=== PATIENT | female | born 1985 | race Caucasian/White ===

== ENCOUNTER → 2021-09-09 13:47 | Outpatient (CLI) | payer BC, SELFPAY ==
--- NOTE | 2021-09-09 14:23 | US_ITS ---
PROCEDURE: US THYROID CLINICAL INDICATION: THYROMEGALY Fatigue, neck pain, palpitations COMPARISON: No exams were available for comparison FINDINGS: Right lobe: Echogenicity is diffusely increased however vascularity is normal. Right lobe measures 1.6 x 4.6 x 2.4 centimeters. There are 2 hypoechoic nodules, the largest of which measures 3 millimeters. Left lobe: Diffusely increased echogenicity with normal vascularity. Measures 1.6 x 4.8 x 2.1 cm. There is a single hypoechoic nodule measuring 8 millimeters. Isthmus: Unremarkable Additional findings: None IMPRESSION: 1. TI-RADS Scoring and Classification: TR1: Benign. 2. Recommendations: No FNA required. Dictated by: Noemi Godwin MD 09/09/2021 14:49 Noemi Godwin MD in [place] 09/09/2021 14:49
== END ==
PROVIDERS: PCP Nurse Practitioner Family; Visit Provider Nurse Practitioner Family
DX: E01.0 Iodine-deficiency related diffuse (endemic) goiter (principal)
CPT/HCPCS: 76536

== ENCOUNTER → 2022-03-24 12:22 | Outpatient (CLI) | payer BC, SELFPAY ==
[2022-03-24 12:59] LABS: Basophils # 0.4 K/mm3 (0-0.2); Basophils % 3.1 % (0.1-2.0); Eosinophils % 0.3 % (0.1-12.0); Hematocrit 39.1 % (37.0-47.0); Hemoglobin 12.5 g/dL (12.2-16.2); Lymphocytes # 9.6 K/mm3 (0.7-4.5); Lymphocytes % 70.6 % (10-50); Mean Corpuscular Hemoglobin 27.5 pg (27.0-31.2); Mean Corpuscular Volume 85.9 fl (81-99); Mean Platelet Volume 9.4 fl (7.4-10.4); Monocytes # 0.4 K/mm3 (0.1-1.0); Neutrophils # 3.1 K/mm3 (1.8-7.8); Neutrophils % 22.9 % (37.0-80.0); Platelet Count 223 K/mm3 (142-424); Red Blood Count 4.55 M/mm3 (4.20-5.40); Red Cell Distribution Width 14.9 % (11.5-17.5); White Blood Count 13.5 K/mm3 (4.8-10.8)
[2022-03-24 13:05] LABS: MANUAL DIFFERENTIAL MANUAL DIFFERENTIAL (MANUAL DIFF)
[2022-03-24 13:26] LABS: Chloride 100 mmol/L (98-107); Potassium 3.6 mmoL/L (3.5-5.1); Sodium 136 mmol/L (136-145)
[2022-03-24 13:28] LABS: Blood Urea Nitrogen 8 mg/dl (7-17)
[2022-03-24 13:29] LABS: Alanine Aminotransferase 289 U/L (12-78); Albumin Level 3.7 g/dl (3.5-5.0); Albumin/Globulin Ratio 1.1 (1.1-1.8); Alkaline Phosphatase 632 U/L (38-126); Anion Gap 9.6 mEq/L (5-15); Aspartate Amino Transferase 318 U/L (14-36); Bilirubin,Total 0.8 mg/dl (0.2-1.3); Calcium 9.4 mg/dl (8.4-10.2); Carbon Dioxide 30 mmol/L (22.0-30.0); Estimated Glomerular Filt Rate 140 ml/min (>60); GFR (African American) 170 ML/MIN (>60); Globulin 3.3 g/dL (1.3-3.2); Glucose 142 mg/dl (74-100)
[2022-03-24 15:52] LABS: Anisocytosis 1+; Lymphocytes % 76 % (10-50); Monocytes % 6 % (2-9); Neutrophils % 17 % (42-76); Platelet Estimate Normal; Total Cells Counted 100
== END ==
PROVIDERS: Visit Provider Nurse Practitioner Family
DX: H57.89 Other specified disorders of eye and adnexa (principal); R50.9 Fever, unspecified
CPT/HCPCS: 36415; 80053; 85007; 85025

== ENCOUNTER → 2022-03-28 09:19 | Outpatient (CLI) | payer BC, OTHER, SELFPAY ==
--- NOTE | 2022-03-28 09:27 | US_ITS ---
FINAL REPORT CLINICAL HISTORY: ELEVATED LIVER ENZYMES FINDINGS: Sonographic images of the right upper quadrant were obtained. The pancreas is partially obscured. There is a 1.7 cm oval nodule in or adjacent to the body of the pancreas of uncertain etiology. The liver has an unremarkable appearance. There is nonspecific gallbladder wall thickening at 7 mm. No gallstones are seen. There is mild intrahepatic biliary duct dilatation. The common duct measures 2 mm. Limited images of the right kidney are unremarkable. IMPRESSION: Oval nodule in or adjacent to the body of the pancreas of uncertain etiology. Recommend pancreas protocol CT. Mild intrahepatic biliary duct dilatation. This could also be follow-up with pancreas protocol CT. Nonspecific gallbladder wall thickening. No gallstones. Reviewed, Interpreted and Dictated by Francisco J Liz III, MD Transcribed by Virgil Horner Authenticated by Francisco J Liz III, MD on 03/28/2022 11:18:[address] [facility]
--- NOTE | 2022-03-28 12:55 | CT_ITS ---
FINAL REPORT TECHNIQUE: Axial CT images of the abdomen and pelvis were obtained before and after the administration of IV contrast. Oral contrast was administered.This study was performed with techniques to keep radiation doses as low as reasonably achievable (ALARA). Individualized dose reduction techniques using automated exposure control or adjustment of mA and/or kV according to the patient''s size were employed. CLINICAL HISTORY: ELEVATED LIVER ENZYMES,ABN ABD US,CHOLECYSTITIS,DILATION OF COMPARISON: Ultrasound from the same day FINDINGS: Abdomen: There is mild bibasilar atelectasis. The heart is normal in size. The liver has an unremarkable appearance, without evidence of mass or biliary duct dilatation. There is nonspecific gallbladder wall thickening.. The spleen is enlarged up to 14.6 cm. There are multiple wedge-shaped low-attenuation areas in the spleen most worrisome for multiple infarcts. No adrenal masses present. The pancreas has an unremarkable appearance. 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 The aorta is normal in caliber. There is an oval nodule anterior in superior to the pancreas favoring an enlarged peripancreatic lymph node. There are multiple other borderline size retroperitoneal lymph nodes. A para-aortic lymph node measures 1.9 cm. There is a small umbilical hernia containing fat. Precontrast images demonstrate no evidence of nephrolithiasis. Pelvis: The appendix is mildly enlarged at 7 mm without adjacent stranding. There is no convincing evidence of appendicitis. The urinary bladder is unremarkable. There is a fat attenuation left ovarian mass measuring 2.7 cm consistent with an ovarian dermoid. There are multiple mildly enlarged left inguinal lymph nodes that could be reactive or neoplastic. There is no evidence of bowel obstruction. IMPRESSION: Splenomegaly with multiple questionable infarcts. Retroperitoneal and left inguinal adenopathy could be reactive or neoplastic. Left ovarian dermoid. Enlarged appendix without convincing appendicitis. Reviewed, Interpreted and Dictated by Francisco J Liz III, MD Transcribed by Virgil Horner Authenticated by Francisco J Liz III, MD on 03/28/2022 03:19:31 PM [facility]
== END ==
PROVIDERS: PCP Nurse Practitioner Family; Visit Provider Nurse Practitioner Family
DX: R74.8 Abnormal levels of other serum enzymes (principal); R93.5 Abnormal findings on diagnostic imaging of other abdominal regions, including retroperitoneum; K81.9 Cholecystitis, unspecified; K83.8 Other specified diseases of biliary tract
CPT/HCPCS: 74178; 76705; Q9967

== ENCOUNTER → 2022-03-29 09:44 | Outpatient (CLI) | payer BC, SELFPAY ==
[2022-03-29 10:40] LABS: Basophils # 0.2 K/mm3 (0-0.2); Basophils % 1.8 % (0.1-2.0); Eosinophils % 0.2 % (0.1-12.0); Hematocrit 38.1 % (37.0-47.0); Hemoglobin 12.3 g/dL (12.2-16.2); Lymphocytes # 6.1 K/mm3 (0.7-4.5); Lymphocytes % 61.5 % (10-50); Mean Corpuscular HGB Conc 32.2 g/dL (31.8-35.4); Mean Corpuscular Hemoglobin 27.7 pg (27.0-31.2); Mean Corpuscular Volume 86.2 fl (81-99); Monocytes # 0.5 K/mm3 (0.1-1.0); Monocytes % 4.9 % (1.7-9.3); Neutrophils # 3.1 K/mm3 (1.8-7.8); Neutrophils % 31.7 % (37.0-80.0); Platelet Count 242 K/mm3 (142-424); Red Blood Count 4.42 M/mm3 (4.20-5.40); Red Cell Distribution Width 15.4 % (11.5-17.5); White Blood Count 9.8 K/mm3 (4.8-10.8)
[2022-03-29 10:46] LABS: MANUAL DIFFERENTIAL MANUAL DIFFERENTIAL (MANUAL DIFF); Monoscreen (Rapid) Positive (Negative)
[2022-03-29 10:57] LABS: Chloride 99 mmol/L (98-107); Sodium 136 mmol/L (136-145)
[2022-03-29 10:58] LABS: Potassium 4.5 mmoL/L (3.5-5.1)
[2022-03-29 11:00] LABS: Alanine Aminotransferase 120 U/L (12-78); Amylase 60 U/L (30-110); Anion Gap 10.5 mEq/L (5-15); Aspartate Amino Transferase 84 U/L (14-36); Bilirubin,Total 0.5 mg/dl (0.2-1.3); Blood Urea Nitrogen 8 mg/dl (7-17); Calcium 9.4 mg/dl (8.4-10.2); Carbon Dioxide 31 mmol/L (22.0-30.0); Estimated Glomerular Filt Rate 140 ml/min (>60); GFR (African American) 170 ML/MIN (>60); Glucose 109 mg/dl (74-100)
[2022-03-29 11:01] LABS: Albumin Level 3.7 g/dl (3.5-5.0); Albumin/Globulin Ratio 1.1 (1.1-1.8); Globulin 3.4 g/dL (1.3-3.2); Lipase 139 U/L (23-300); Total Protein,Serum 7.1 g/dl (6.3-8.2)
[2022-03-29 11:19] LABS: Alkaline Phosphatase 503 U/L (38-126)
[2022-03-29 11:25] LABS: Lymphocytes % 51 % (10-50); Monocytes % 7 % (2-9); Neutrophils % 42 % (42-76); Platelet Estimate Normal; Total Cells Counted 100
[2022-03-29 11:26] LABS: RBC Morphology Normal
[2022-04-08 19:03] LABS: Hep A Ab, IgM NEGATIVE; Hepatitis B Core Antibody IgM NEGATIVE; Hepatitis B Surface Antigen NEGATIVE; Hepatitis C Antibody <0.1
== END ==
PROVIDERS: PCP Nurse Practitioner Family; Visit Provider Nurse Practitioner Family
DX: R10.10 Upper abdominal pain, unspecified (principal); R11.0 Nausea; R74.8 Abnormal levels of other serum enzymes
CPT/HCPCS: 36415; 80053; 80074; 82150; 83690; 85007; 85025; 86318

== ENCOUNTER 2025-05-06 08:15 | Outpatient (CLI) | payer BC, SELFPAY ==
--- OUTSIDE RECORDS SUMMARY | 2024-05-28 05:15 | XMS_ITS ---
Author Organization [facility] Address [address] [facility] [address] [facility] [address] [place] [phone] Care Team Providers Care Regional Telecommunications Specialist Name Role Phone Sujey Starks Unavailable [phone] Allergies Allergen (clinical drug ingredient) Drug/Non Drug Allergy documented on EMR Reaction Allergy Type Onset Date Status Sulfamethoxazole vomiting Drug Allergy Active sulfamethoxazole / trimethoprim Sulfamethoxazole-Trime thoprim vomiting Drug Allergy Active Results Component Value Reference Range Notes CBC Venipuncture (in house) Reviewed date:05/28/2024 01:03:25 PM Interpretation: Performing Lab: Notes/Report: wbc 6.8 3.5 - 10 lymph 28.9% 15 - 50 mid 6.3% 2 - 15 gran 64.8% 35 - 80 rbc 4.56 3.5 - 5.5 hgb 12.3 11.5 - 16.5 hct 38.1 35 - 55 mcv 83.5 75 - 100 mch 27.1 25 - 35 mchc 32.4 31 - 38 platlet 338 100 - 400 P-Comprehensive Metabolic Pa antonio (CMP) Reviewed date:05/29/2024 01:24:44 PM Interpretation: Normal Performing Lab: Notes/Report: Test performed by [facility] [address] [place] [address] , [address], [place] [address] Soy Meza MD, Stone Spreader Operator CLIA: [id number] Sodium 137 135-145 mmol/L Potassium 4.1 3.5-5.3 mmol/L Chloride 101 97-108 mmol/L CO2 24 22-32 mmol/L Glucose 97 65-99 mg/dL BUN 10 6-20 mg/dL Creatinine 0.68 0.50-1.00 mg/dL Calcium 9.5 8.6-10.4 mg/dL eGFR by Creatinine 114 >59 mL/min/1.73m2 Protein 7.0 6.0-8.3 g/dL Albumin 4.5 3.5-5.3 g/dL Alkaline Phosphatase 80 35-121 IU/L ALT (SGPT) 9 <5-47 IU/L AST (SGOT) 15 <5-40 IU/L Bilirubin, Total 0.5 <0.2-1.2 mg/dL A/G Ratio 1.8 1.1-2.5 mg/dL P-Lipid Panel Reviewed date:05/29/2024 01:24:33 PM Interpretation: Normal Performing Lab: Notes/Report: Test performed by [facility], [address] , [address], [place] [address] Soy Meza MD, Stone Spreader Operator CLIA: [id number] Cholesterol 171 <200 mg/dL Triglycerides 58 <150 mg/dL HDL Cholesterol 57 >39 mg/dL Cholesterol / HDL Ratio 3.00 0.00-4.44 Ratio Non-HDL Cholesterol 114 <130 mg/dL LDL Cholesterol (Calculation) 102 <130 mg/dL LDL Cholesterol Levels* Less than 100 mg/dL Optimal 100 to 129 mg/dL Near Optimal/ Above Optimal 130 to 159 mg/dL Borderline High 160 to 189 mg/dL High 190 mg/dL and above Very High * Categories as recommended by the 2004 ATPIII guidelines LDL/HDL Ratio 1.8 <3.3 Ratio LDL Cholesterol Patient History Test Date: 05/28/2024 LDL Results: 102 Units: mg/dL % Change: - P-TSH reflex to FT4 Reviewed date:05/29/2024 01:24:55 PM Interpretation: Normal Performing Lab: Notes/Report: Test performed by [facility], [facility] [address] [place] [address] , [address], [place] [address] Soy Meza MD, Stone Spreader Operator CLIA: [id number] TSH reflex to FT4 0.85 0.43-5.25 mU/L REASON FOR VISIT Biometric Screening Vital Signs Weight 156.2 lbs 05/28/2024 Blood pressure systolic 110 mm Hg 05/28/20 24 Blood pressure diastolic 70 mm Hg 024 Heart Rate 83 /min 05/28/2024 Height 64.25 in 05/28/2024 BMI 26.60 kg/m2 05/28/2024 Encounters Encounter Location Date Provider Diagnosis [facility] [address] [place] [id number] 05/28/2024 Sujey Starks Screening, lipid Z13 .220 ; Routine physical examination Z00.00 ; Screening for diabetes mellitus Z13.1 and Papule R23.8 Assessments Encounter Date Diagnosis (ICD Code) Assessment Notes Treatment Notes Treatment Clinical Notes Section Notes 05/28/2024 Screening, lipid (ICD-10 - Z13.220) 05/28/2024 Routine physical examination (ICD-10 - Z00.00) Healthy female, continue routine care. 05/28/2024 Screening for diabetes mellitus (ICD-10 - Z13.1) 05/28/2024 Papule (ICD-10 - R23.8) Will make a dermatology appt to check lesions and also do a general skin exam. Plan Of Treatment Treatment Notes Assessment Notes Routine physical examination Healthy fem anjana, continue routine care. Papule Will make a dermatol ogy appt to check lesions and also do a general skin exam. Next Appt Details Follow Up: via phone to repo rt test results, Reason: Provider Name:Sujey dunlap, 05/29/2025 09:00:00 AM, [address], [address], [place], [place], [id number], Progress Notes * ELAINE BOLIVARDOB :1985 (39 yo F)Acc No.[id number]:05/28/2024 Physical Patient: ELAINE BLAIR Provider: STANFORD Ruiz :1985 A ge:38 Y S ex:Female Date:05/28/2024 Address:[address] [place] [address], [id number] Subjective: * Chief Complaints: * 1 . Biometric Screening. * HPI: H PI: The pt is here today for a check up and Biometric screen. Pt states she doing good. Pt states she has some spots on her legs she would like checked out. * ROS: D ERMATOLOGY: no R obey. n o H torres. G ASTROENTEROLOGY: no N ausea. n o V omiting. n o D iarrhea.? U ROLOGY: no D ifficulty urinating. n o B lood in urine. * Medical History: M edical History Verified. * Surgical History: [place] Teeth Removal 2006. 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 * Family History: F ather: alive. M other: . P aternal Grand Father: . P aternal Grand Mother: . M aternal Grand Father: . M aternal Grand Mother: .?1 sister(s) . 1 son(s) , 1 daughter(s) - healthy. . * Social History: C affeine: yes, frequency: daily. Exercise: yes. Home smoke detector use: yes. Marital Status: . Alcohol: no. Occupation: employed, Works from home. Past smoking status: never smoked. Recreational drug use: no. Alcohol: Type: , Frequency: ,Years: , Determination:. Sexually active: yes. * Medications: N one * Allergies: S ulfamethoxazole: vomiting, Sulfamethoxazole-Trimethoprim: vomiting. Objective: * Vitals: W t:156.2, Temp:98.8, BP:110/70, HR:83, Nurse:CLEMENTE, Ht: 64.25, BMI:26.60. * Examination: G eneral Examination: General Appearance: N AD. HEENT: u nremarkable. Oral cavity: n o lesions, mucosa moist and WNL, no erythema. Neck: s upple, no lymphadenopathy. Chest: n ormal shape and expansion. Heart: R SR. Lungs: c lear to auscultation. Abdomen: bowel sounds present, soft and nontender, no organomegaly or masses, no guarding or rigidity. Neurologic Exam: I ntact, gait normal. Skin: n ormal, no rash, an enlarging papule on the left lower leg and right upper thigh. Peripheral pulses: n ormal (2+) bilaterally. Extremities: n o leg edema. Assessment: * Assessment: 1. R outine physical examination - Z00.00 (Primary) 2 . S creening, lipid - Z13.220 3 . S creening for diabetes mellitus - Z13.1 4 . P apule - R23.8 Plan: * Treatment: Value Reference Range T SH reflex to FT4 0.85 0.43-5.25 - mU/L * Sujey Starks 05/29/2024 1: 24:48 PM > discussed with patient ?LAB: CBC Venipuncture (in house) (Collection Date & Time - 05/28/2024)* Value Reference Range w bc 6.8 3.5 - 10 * l ymph 28.9% 15 - 50 * m id 6.3% 2 - 15 * g ran 64.8% 35 - 80 * r bc 4.56 3.5 - 5.5 * h gb 12.3 11.5 - 16.5 * h ct 38.1 35 - 55 * m cv 83.5 75 - 100 * m ch 27.1 25 - 35 * m chc 32.4 31 - 38 * p latlet 338 100 - 400 * Beryl Guillaume 05/28/2024 1:0 1:46 PM >Sujey Starks 05/28/2024 1:03:22 PM > Notes: Healthy female, continue routine care. ??2.?Screening, lipid?LAB: P-Lipid Panel (Collection Date & Time - 05/28/2024 09:05 AM)?Normal* Value Reference Range C holesterol / HDL Ratio 3.00 0.00-4.44 - Ratio * C holesterol 171 <200 - mg/dL * H DL Cholesterol 57 >39 - mg/dL * L DL Cholesterol (Calculation) 102 <130 - mg/d L * L DL/HDL Ratio 1.8 <3.3 - Ratio * N on-HDL Cholesterol 114 <130 - mg/dL * T riglycerides 58 <150 - mg/dL * Sujey Starks 05/29/2024 1: 24:27 PM > discussed with patient 3.?Screening for diabetes mellitus?LAB: P-Comprehensive Metabolic Panel (CMP) (Collection Date & Time - 05/28/2024 09:05 AM)?Normal* Value Reference Range A /G Ratio 1.8 1.1-2.5 - mg/dL * A lbumin 4.5 3.5-5.3 - g/dL * A lkaline Phosphatase 80 35-121 - IU/L * A LT (SGPT) 9 <5-47 - IU/L * A ST (SGOT) 15 <5-40 - IU/L * B ilirubin, Total 0.5 <0.2-1.2 - mg/dL * B UN 10 6-20 - mg/dL * C alcium 9.5 8.6-10.4 - mg/dL * C hloride 101 97-108 - mmol/L * C O2 24 22-32 - mmol/L * C reatinine 0.68 0.50-1.00 - mg/dL * G lucose 97 65-99 - mg/dL * P otassium 4.1 3.5-5.3 - mmol/L * S odium 137 135-145 - mmol/L * P rotein 7.0 6.0-8.3 - g/dL * e GFR by Creatinine 114 >59 - mL/min/1.73m2 * Sujey Starks 05/29/2024 1: 24:37 PM > discussed with patient 4.?Papule? Notes: Will make a dermatology appt to check lesions and also do a general skin exam.?? * Procedure Codes: 8 5025 CBC WITH AUTO DIFF, 98930 VENIPUNCT, ROUTINE* * Follow Up: v ia phone to report test results * Billing Information: * Visit Code: 02233 Preventive Care Est Pt 18-39. * Procedure Codes: 13858 CBC WITH AUTO DIFF. 72989 VENIPUNCT, ROUTINE*. * Electronic signature of STANFORD Bajwa on 05/06/2025 at 08:20 AM EDT Sign off status: Pending * Provider: STANFORD Ruiz Date: 05/28/2024 Generated for Galei ng/Fajovanyg/eTransmitting on: 05/06/2025 08:20 AM EDT History and Physical Notes * Examination Category Sub-Category Detail Notes Category Not es General Examination HEENT: unremarkable Heart: RSR Lungs: clear to auscultatio n Abdomen: bowel sounds present , soft and nontender, no organomegaly or masses, no guarding or rigidity Extremities: no leg edema General Appearance: NAD Skin: normal, no rash, an enlarging papule on the left lower leg and right upper thigh Neurologic Exam: Intact, gait normal Neck: supple, no lymphaden opathy Oral cavity: no lesions, mucosa m oist and WNL, no erythema Peripheral pulses: normal (2+) bilatera lly Chest: normal shape and exp ansion
--- OUTSIDE RECORDS SUMMARY | 2025-05-06 08:20 | XMS_ITS | Patient Health Record ---
Author Organization [facility] Address [address] [facility] [address] [facility] [address] [place] [id number] Care Team Providers Care Mercerizing Range Feeder Name Role Phone Sujey Starks Unavailable [phone] Allergies Allergen (clinical drug ingredient) Drug/Non Drug Allergy documented on EMR Reaction Allergy Type Onset Date Status Sulfamethoxazole vomiting Drug Allergy Active sulfamethoxazole / trimethoprim Sulfamethoxazole-Trime thoprim vomiting Drug Allergy Active Results Component Value Reference Range Notes P-TSH reflex to FT4 Reviewed date:05/29/2024 01:24:55 PM Interpretation: Normal Performing Lab: Notes/Report: Test performed by [facility] [address] [place] [address] , [address], [place] [address] Soy Meza MD, Skin Carver CLIA: [id number] TSH reflex to FT4 0.85 0.43-5.25 mU/L P-Lipid Panel Reviewed date:05/29/2024 01:24:33 PM Interpretation: Normal Performing Lab: Notes/Report: Test performed by [facility] [address] [place] [address] , [address], [place] [address] Soy Meza MD, Skin Carver CLIA: [id number] Cholesterol 171 <200 mg/dL Triglycerides 58 <150 [...] Results: 102 Units: mg/dL % Change: - P-Comprehensive Metabolic Pa antonio (CMP) Reviewed date:05/29/2024 01:24:44 PM Interpretation: Normal Performing Lab: Notes/Report: Test performed by [facility], [address] , [address], [place] [address] Soy Meza MD, Skin Carver CLIA: [id number] Sodium 137 135-145 mmol/L Potassium 4.1 3.5-5.3 [...] <0.2-1.2 mg/dL A/G Ratio 1.8 1.1-2.5 mg/dL CBC Venipuncture (in house) Reviewed date:05/28/2024 01:03:25 [...] - 38 platlet 338 100 - 400 Reason For Referral No Information Vital Signs Heart Rate 83 /min 05/28/2024 Blood pressure diastolic 70 mm Hg 05/28/2024 Height 64.25 in 05/28/2024 Blood pressure systolic 110 mm Hg 05/28/2024 Weight 156.2 lbs 05/28/2024 BMI 26.60 kg/m2 05/28/2024 Encounters Encounter Location Date Provider Diagnosis Jesse [address] [facility] [address] [facility] [address] [place] [phone] 05/28/2024 Sujey Starks Screening, lipid Z13 .220 [...] a general skin exam. Plan Of Treatment Next Appt Details Provider Name:Sujey dunlap, 05/29/2025 09:00:00 AM, [address] [facility], [address], [place], [id number], Insurance Providers Payer Name Payer Address Payer Phone Subscriber Number Group Number Insured Name Patient Relationship to Insured Coverage Start Date Coverage End Date [employer]RL[employer] [id number] [place] [address] [id number] ELAINE GODDARD Self - patient is the insured Medical (General) History Surgical History Surgery Date(Month/Year) [place] Teeth Removal 2006 Hospitalization History Reason Date(Month/Year) Legionarre's Disease 2004 Child 2014 Child 2018
--- OUTSIDE RECORDS SUMMARY | 2025-05-06 08:20 | XMS_ITS | Patient Health Record ---
Author Organization [facility] Address [address] [facility] [address] [place] [address] Care Team Providers Care Environmental Marketer Name Role Phone Verenice Astudillo Unavailable [phone] Allergies Allergen (clinical drug ingredient) Drug/Non Drug Allergy documented on EMR Reaction Allergy Type Onset Date Status sulfamethoxazole / trimethoprim SULFAMETHOXAZOLE-T RIMETHOPRIM Unspecified Drug Allergy 07/30/2015 Active Reason For Referral No Information Social History Social History Additional Details Category Social Info Options Details Miscellaneous: Caffeine: CAFFEINE USE: 0 Problems Problem Type SNOMED Code ICD Code Onset Dates Problem Status W/U Status Risk Notes Problem Cervical smear, as part of routine gynecological examination (Z01.419) 9 Active confirmed Annual without abnormal findings Problem Complex cyst of left ovary ([id number]) Complex cyst of left ovary (N83.292) 0 Active confirmed Other ovarian cyst, left side Plan Of Treatment No Information Medical (General) History Medical History History ICD Code Irritable Bowel ANNUAL WITHOUT ABNORMAL FINDINGS ABORTIONS: 0 Surgical History Surgery Date(Month/Year) none noted
--- NOTE | 2025-05-06 08:30 | US_ITS ---
PROCEDURE INFORMATION: Exam: US Left Breast, Complete Exam date and time: 05/06/2025 8:29 AM Age: 39 years old Clinical indication: Left breast pain. TECHNIQUE: Imaging protocol: Complete ultrasound of all four quadrants of the left breast and the retroareolar regions, including ultrasound of the axilla when performed. COMPARISON: No relevant prior studies available. FINDINGS: ULTRASOUND: Breast ultrasound findings: Left breast ultrasound: There are scattered subcentimeter benign simple cysts. No abnormal lymph in the axilla. No finding to explain the patient's breast pain. No solid or suspicious masses. IMPRESSION: No sonographic finding to explain the patient's breast pain. Recommend clinical follow-up.Annual bilateral mammographic screening is recommended to commence at the age of 40 unless otherwise clinically indicated. ASSESSMENT: BI-RADS Category 1: Negative.
== END 2025-05-06 23:59 | disposition home or self-care (01) ==
LOC: RAD 08:16
PROVIDERS: PCP Physician Assistant; Visit Provider Obstetrics & Gynecology
DX: N60.02 Solitary cyst of left breast (principal); N64.4 Mastodynia
CPT/HCPCS: 76641